=== PATIENT | female | born 1990 | race African-American/Black ===

== ENCOUNTER 2017-07-15 14:31 | Emergency (ER) | payer MEDICAID, OTHER ==
[~2017-07-15] VITALS: Ht 165.1 cm; Wt 74.5 kg
[~2017-07-15 14:31] MED LIST: BACT800T5 PO; CEPH500C3 PO
[2017-07-15 14:32] VITALS: BP 113/62; PULSE 79; RESP 16; TEMP 98.2; O2SAT 100
[2017-07-15 15:47] LABS: AUTOMATED NEUTROPHIL # 5.8 TH/MM3 (1.8-7.7); BASOPHIL % 0.4 % (0.0-2.0); EOSINOPHIL # 0.2 TH/MM3 (0-0.4); EOSINOPHIL % 2.2 % (0.0-4.0); HEMATOCRIT 36.6 % (35.0-46.0); HEMOGLOBIN 12.5 GM/DL (11.6-15.3); LYMPH % 22.9 % (9.0-44.0); MEAN CELL VOLUME 93.4 FL (80.0-100.0); MEAN CORPUSCULAR HEMOGLOBIN 31.8 PG (27.0-34.0); MEAN CORPUSCULAR HGB CONC 34.1 % (32.0-36.0); MEAN PLATELET VOLUME 7.7 FL (7.0-11.0); MONO % 7.4 % (0.0-8.0); MONOCYTE # 0.6 TH/MM3 (0-0.9); NEUT % 67.1 % (16.0-70.0); PLATELET COUNT 332 TH/MM3 (150-450); RED BLOOD COUNT 3.92 MIL/MM3 (4.00-5.30); RED CELL DISTRIBUTION WIDTH 12.8 % (11.6-17.2); WHITE BLOOD COUNT 8.6 TH/MM3 (4.0-11.0)
[2017-07-15 15:51] LABS: BILIRUBIN, URINE NEG (NEG); BLOOD, URINE NEG (NEG); GLUCOSE,URINE NEG (NEG); KETONE, URINE NEG (NEG); MUCUS URINE FEW /lpf (OCC); NITRITE,URINE NEG (NEG); SQUAMOUS EPITHELIAL CELL URINE 3 /hpf (0-5); URINE COLOR LIGHT-YELLOW (YELLW/STRAW); URINE LEUKOCYTE ESTERASE NEG (NEG)
[2017-07-15] MEDS ORDERED: UNIS25TA3 PO (15:54)
[2017-07-15] MEDS ORDERED: PYRI25TA2 PO (15:54)
[2017-07-15] MEDS ORDERED: PREN29TA PO (15:54)
--- NOTE | 2017-07-15 15:54 | PD ---
HPI Chief Complaint: GI Complaint Time Seen by Provider: 15:21 Travel History International Travel<30 days: No Contact w/Intl Traveler<30days: No Traveled to known affect area: No History of Present Illness HPI This is a 27-year-old female who presents to the emergency department with nausea and intermittent left-sided abdominal cramping that's been going on for 4 days, constant, moderate severity associated with one episode of vomiting this morning. Her last menstrual cycle was in May. She's had no vaginal bleeding. [facility] Past Medical History Medical History: Denies Significant Hx Diminished Hearing: No Influenza Vaccination: No ?: Unknown Past Surgical History Surgical History: No Previous Surgery Social History Alcohol Use: No Tobacco Use: No Substance Use: No Allergies-Medications (Allergen,Severity, Reaction): Coded Allergies: No Known Allergies (Verified Allergy, Unknown, 03/17/03) Reported Meds & Prescriptions Reported Meds & Active Scripts Active Keflex (Cephalexin Monohydrate) 500 Mg Cap 500 Mg PO Q8 10 Days Bactrim DS (Sulfamethoxazole-Trimethoprim DS) 1 Tab Tab 1 Tab PO BID 10 Days Review of Systems Except as stated in HPI: all other systems reviewed are Neg Physical Exam Narrative GENERAL:Well appearing, no acute distress SKIN: Focused skin assessment warm and dry. HEAD: Atraumatic. Normocephalic. EYES: Pupils equal and round. No injection or drainage. ENT: Moist mucous membranes NECK: Trachea midline. CARDIOVASCULAR: Regular rate and rhythm. No murmur appreciated. RESPIRATORY: Clear to auscultation. Breath sounds equal bilaterally. GASTROINTESTINAL: Abdomen soft, non-tender, nondistended. MUSCULOSKELETAL: No obvious deformities. NEUROLOGICAL: Awake and alert. No obvious cranial nerve deficits. Moving all extremities. PSYCHIATRIC: Appropriate mood and affect; insight and judgment normal. Data Data Last Documented VS Vital Signs Date Time Temp Pulse Resp B/P (MAP) Pulse Ox O2 Delivery O2 Flow Rate FiO2 07/15/17 14:32 98.2 79 16 113/62 (79) 100 Orders Orders Complete Blood Count With Diff (07/15/17 14:46) Comprehensive Metabolic Panel (07/15/17 14:46) Urinalysis - C+S If Indicated (07/15/17 14:46) Lipase (07/15/17 14:46) Ed Urine Pregnancytest Poc (07/15/17 14:46) Ed Poc Ultrasound (07/15/17 ) Labs Laboratory Tests Test 07/15/17 14:50 07/15/17 14:53 [facility] Medical Decision Making Medical Screen Exam Complete: Yes Emergency Medical Condition: Yes Differential Diagnosis , ectopic , gastroenteritis Narrative Course This is a 27-year-old female who presents to the emergency department with nausea and vomiting and lower abdominal discomfort. Her last menstrual cycle was in May. I performed a bedside ultrasound which demonstrates a gestational sac visible yolk sac suggesting an intrauterine . Patient otherwise appears well. I think she can be discharged home on vitamins. Diagnosis Primary Impression: Qualified Codes: Z3A.01 - Less than 8 weeks gestation of Patient Instructions: General Instructions Additional Instructions: Follow up with [facility] at: Follow up with: [facility] [address] [place] [address] Office Hours Saturday - 9:00 am - 5:30 pm Saturday 8:00 am - 12:00 pm Teen Tuesdays 4:00 - 6:30 pm Med/Other Pt SpecificInfo: Prescription(s) given Scripts Pyridoxine (Pyridoxine) 25 Mg Tab 25 MG PO DAILY Y for NAUSEA, #30 TAB 0 Refills Prov: Alicia Forman MD 07/15/17 Doxylamine Succinate (Unisom Sleep Aid) 25 Mg Tablet 0.5 TAB PO HS Y for NAUSEA, #15 Prov: Alicia Forman MD 07/15/17 Vit-Iron Carbonyl ( Plus Iron 29-1 mg) 29 Mg Iron-1 Mg Tab 1 TAB PO DAILY for Nutritional Supplement, #30 TAB 0 Refills Prov: Alicia Forman MD 07/15/17 Disposition: 01 DISCHARGE HOME Condition: Stable Alicia Forman MD Jul 15, 2017 15:54
[2017-07-15 16:16] LABS: AST (GOT) 18 U/L (15-37); BICARBONATE 26.7 MEQ/L (21.0-32.0); BLOOD UREA NITROGEN 6 MG/DL (7-18); CALCIUM 8.8 MG/DL (8.5-10.1); CHLORIDE 103 MEQ/L (98-107); GLOMERULAR FILTRATION RATE 104 ML/MIN (>89); GLUCOSE,RANDOM 73 MG/DL (74-106); LIPASE 199 U/L (73-393); SODIUM (NA) 135 MEQ/L (136-145)
[2017-07-15 16:17] LABS: ALT (GPT) 23 U/L (10-53)
[2017-07-15 16:20] LABS: ALKALINE PHOSPHATASE 57 U/L (45-117); TOTAL BILIRUBIN ADULT 0.6 MG/DL (0.2-1.0)
== END 2017-07-15 16:17 | disposition home or self-care (01) ==
LOC: NEPD 14:31
DX: O21.9 Vomiting of pregnancy, unspecified (principal); Z3A.08 8 weeks gestation of pregnancy; R10.9 Unspecified abdominal pain
CPT/HCPCS: 80053; 81001; 83690; 84703; 85025; 99283